=== PATIENT | male | born 1975 ===

== ENCOUNTER 2018-05-05 18:53 | Inpatient (IN) | payer BC ==
[~2018-05-05] VITALS: Ht 180.3 cm; Wt 90.7 kg
[2018-05-05] MEDS ORDERED: LEVE500T9 PO (19:04)
[2018-05-05] MEDS ORDERED: SERT100T PO (19:04)
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
[2018-05-05] MEDS ORDERED: IV NORMAL SALINE 250 ML IV ONE (20:00)
[2018-05-05] MEDS ORDERED: IOHEXOL 300MG/ML 100 ML INFUS..BTL ONE (20:00)
[2018-05-05] MEDS ORDERED: NORMAL SALINE FLUSH 10 ML DISP.SYRIN ONE (20:00)
[2018-05-05] MEDS ORDERED: SWABABLE VALVE TRANSFER SET EA MC ONE (20:00)
[2018-05-05 20:03] LABS: BASOPHILS # (AUTO) 0.1 K/uL (0.0-8.0); BASOPHILS % (AUTO) 0.9 % (0.0-2.0); EOSINOPHILS % (AUTO) 0.5 % (0.0-7.0); HEMATOCRIT 45.2 % (36.7-47.1); HEMOGLOBIN 15.5 g/dL (12.5-16.3); LYMPHOCYTES # (AUTO) 1.6 K/uL (20.0-40.0); LYMPHOCYTES % (AUTO) 21.6 % (20.5-51.5); MEAN CORPUSCULAR HEMOGLOBIN 31.6 uug (23.8-33.4); MEAN CORPUSCULAR HGB CONC 34 g/dL (32.5-36.3); MEAN CORPUSCULAR VOLUME 91.9 fL (73.0-96.2); MONOCYTES # (AUTO) 0.5 K/uL (2.0-10.0); MONOCYTES % (AUTO) 6.5 % (0.0-11.0); NEUTROPHILS # (AUTO) 5.1 K/uL (1.8-8.9); NEUTROPHILS % (AUTO) 70.5 % (38.5-71.5); PLATELET COUNT (AUTO) 255 K/uL (152-348); RED BLOOD CELL COUNT(AUTO) 4.92 MIL/uL (4.06-5.63); WHITE BLOOD COUNT (AUTO) 7.2 K/uL (3.6-10.2)
[2018-05-05 20:07] LABS: POTASSIUM 3.6 mmol/L (3.5-5.1)
[2018-05-05 20:30] LABS: *AMPHETAMINE, URINE NEGATIVE (NEGATIVE); *BARBITURATE, URINE NEGATIVE (NEGATIVE); *CANNABINOID, URINE NEGATIVE (NEGATIVE); *COCCAINE, URINE NEGATIVE (NEGATIVE); *OPIATE, URINE NEGATIVE (NEGATIVE); *PHENCYCLIDINE SCREEN,URINE NEGATIVE (NEGATIVE)
--- NOTE | 2018-05-05 20:30 | NUR ---
PT IN ROUTE TO CT IN [facility] WITH TRANSPORTER
--- NOTE | 2018-05-05 20:56 | NUR ---
PT RETURNS FROM CT IN [facility] WITH TRANSPORTER
--- NOTE | 2018-05-05 21:17 | NUR ---
CERVICAL SPINE FRACTURE RULED OUT. C-SPINE COLLAR REMOVED PER MD HEIN.
[2018-05-05] MEDS ORDERED: ONDANSETRON IV *ER 4 MG/2 ML VIAL IV ONE (21:30)
[2018-05-05] MEDS ORDERED: MORPHINE SULFATE 4 MG/1 ML DISP.SYRIN ONE (21:30)
[2018-05-05] MEDS ORDERED: ONDANSETRON 4 MG/2 ML VIAL ONE (21:30)
[2018-05-05] MEDS ORDERED: MORPHINE SULFATE 4 MG/1 ML DISP.SYRIN IV ONE (21:30)
--- NOTE | 2018-05-05 21:42 | NUR ---
REPORT GIVEN TO TELE NURSEZACK
[2018-05-05] MEDS ORDERED: IV NS 1000 ML 1,000 ML IV PRN (21:59)
[2018-05-05] MEDS ORDERED: HYDROCODONE/APAP 10-325 MG TABLET PO PRN (22:00)
[2018-05-05] MEDS ORDERED: MAGNESIUM HYDROXIDE 30 ML LIQUID UDC PO PRN (22:00)
[2018-05-05] MEDS ORDERED: ONDANSETRON 4 MG/2 ML VIAL IV PRN (22:00)
[2018-05-05] MEDS ORDERED: ACETAMINOPHEN 325 MG TABLET PO PRN (22:00)
[2018-05-05] MEDS ORDERED: NEOMY/BACITRA/POLYMYXIN B OINT UD PACKET TP ONE (22:12)
--- NOTE | 2018-05-05 22:20 | NUR ---
Pt. admitted to TELEMETRY, under care of [facility]DING Belongs List completed
[2018-05-05 22:28] VITALS: BP 135/86
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
[2018-05-05] MEDS: MORPHINE SULFATE 4 MG/1 ML DISP.SYRIN IV PRN (22:43)
[2018-05-05] MEDS ORDERED: GABAPENTIN 400 MG CAPSULE PO SCH (22:45)
[2018-05-05] MEDS ORDERED: LEVETIRACETAM 500 MG/5 ML LIQUID UDC NG SCH (22:45)
[2018-05-05] MEDS ORDERED: SERTRALINE HCL 100 MG TABLET PO SCH (22:45)
--- NOTE | 2018-05-05 23:11 | NUR ---
Gabapentin dose not administered per DRIER Gilliland order d/t possible internal bleeding. Family & patient aware. Will continue to monitor patient.
[2018-05-06] MEDS: MORPHINE SULFATE 4 MG/1 ML DISP.SYRIN IV PRN ×4 (03:00→11:36)
[2018-05-06 03:38] VITALS: BP 120/64
[2018-05-06] MEDS: LORAZEPAM 2 MG/1 ML VIAL IV PRN ×2 (05:53→10:25)
--- NOTE | 2018-05-06 06:20 | NUR ---
Patient stable through shift with no acute distress. Vital signs within range. Sinus rhythm on tele monitor HR of 84. Patient continues to complain of pain at sternal area, relieved by pain medication. All needs attended to promptly. All meds given per MD order. Safety measures implemented. Call light in reach. Will endorse to oncoming shift.
[2018-05-06 06:37] LABS: BASOPHILS # (AUTO) 0.1 K/uL (0.0-8.0); BASOPHILS % (AUTO) 0.6 % (0.0-2.0); EOSINOPHILS % (AUTO) 0.3 % (0.0-7.0); HEMATOCRIT 41.6 % (36.7-47.1); HEMOGLOBIN 14.2 g/dL (12.5-16.3); LYMPHOCYTES # (AUTO) 1.9 K/uL (20.0-40.0); LYMPHOCYTES % (AUTO) 20.9 % (20.5-51.5); MEAN CORPUSCULAR HGB CONC 34 g/dL (32.5-36.3); MEAN CORPUSCULAR VOLUME 90.7 fL (73.0-96.2); MONOCYTES # (AUTO) 0.7 K/uL (2.0-10.0); MONOCYTES % (AUTO) 7.5 % (0.0-11.0); NEUTROPHILS # (AUTO) 6.5 K/uL (1.8-8.9); NEUTROPHILS % (AUTO) 70.7 % (38.5-71.5); PLATELET COUNT (AUTO) 219 K/uL (152-348); RED BLOOD CELL COUNT(AUTO) 4.58 MIL/uL (4.06-5.63); WHITE BLOOD COUNT (AUTO) 9.1 K/uL (3.6-10.2)
[2018-05-06] MEDS ORDERED: PANTOPRAZOLE SODIUM 40 MG TABLET.DR PO SCH (07:00)
[2018-05-06 07:07] LABS: CREATININE 0.9 mg/dL (0.6-1.3); MAGNESIUM 1.7 mg/dL (1.8-2.4); PHOSPHOROUS 3.9 mg/dL (2.5-4.9); POTASSIUM 3.8 mmol/L (3.5-5.1)
[2018-05-06 11:12] VITALS: BP 135/79
[2018-05-06] MEDS ORDERED: MAGNESIUM OXIDE 400 MG TABLET PO ONE (12:15)
--- NOTE | 2018-05-06 14:25 | NUR ---
IV D/C'D TELE D/C'D. HOME INSTRUCTIONS REVIEWED WITH PT. AND . HOME RX REVIEWED WITH PT. AND . CD OF RADIOLOGY TESTS GIVEN TO PT. PT. STATES HE WILL FOLLOW-UP WITH HIS ORTHOPEDIC MD. DISCHARGED TO VIA W/C TO PRIVATE CAR.
== END 2018-05-06 14:25 | disposition home or self-care (01) | DRG 185 ==
LOC: ER 18:58 → TELE 21:55
PROVIDERS: ADMIT Nurse Practitioner Acute Care; ATTEND Nurse Practitioner Acute Care
DX: S22.20XA Unspecified fracture of sternum, initial encounter for closed fracture (principal); G40.909 Epilepsy, unspecified, not intractable, without status epilepticus; F41.9 Anxiety disorder, unspecified; F32.9 Major depressive disorder, single episode, unspecified; V89.2XXA Person injured in unspecified motor-vehicle accident, traffic, initial encounter; Y93.9 Activity, unspecified; Y92.488 Other paved roadways as the place of occurrence of the external cause; M54.2 Cervicalgia; K76.89 Other specified diseases of liver; R58 Hemorrhage, not elsewhere classified; F10.10 Alcohol abuse, uncomplicated; Y90.8 Blood alcohol level of 240 mg/100 ml or more
CPT/HCPCS: 36415; 70030-TC; 70450; 71045; 71260; 72125; 80307; 83735; 84100; 85025; 85730; 93005; 94640; A4663; G0480; J2060; J2270; J2405; J3490; J7030; J7050; Q9967